=== PATIENT | male | born 1985 | race Caucasian/White ===

== ENCOUNTER 2016-09-05 10:11 | Emergency (ER) | payer OTHER ==
--- NOTE | 2016-09-05 13:22 | ED ORDER SUMMARY ---
..... 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 verbal order read back to Lucina ABURTO) (10:52 Aki R.N.) Cardiac Panel Stat (10:52 09/05/2016 Aki Benjamin.N. verbal order read back to Lucina ABURTO) (10:52 Aki R.N.) Pulse oximeter (10:52 09/05/2016 Aki Benjamin.N. verbal order read back to Lucina ABURTO) (10:52 Aki R.N.) EKG - ER Stat (10:52 09/05/2016 Aki Benjamin.Jovany. verbal order read back to Lucina ABURTO) (10:52 Aki R.N.) MEDICATION ORDERS: IV FLUIDS: IV Saline Lock (10:52 09/05/2016 Aki Bartholomew verbal order read back to Lucina ABURTO) (10:53 Aki R.N.) IV NS : initial bolus 1000 mL (1000 mL/hr), then none - (NOW) (11:25 09/05/2016 Lucina ABURTO) (11:31 Aki R.N.) ORDER SHEET NOTES: [Electronically signed by Luciano Cartagena R.N. (15:44 09/05/2016)] [Electronically signed by Cassie Shoemaker MD (23:54 09/06/2016)] [Electronically locked/signed by Luciano Cartagena R.N. (15:44 09/05/2016)]
--- NOTE | 2016-09-05 13:22 | ED NURSING NOTES ---
Clinical Report - Nurses [facility] [address] [place] [address] 09/05/2016 10:14 [id number] Triage time 10:Sep 05 2016. Acuity: LEVEL 3. Chief Complaint: PALPITATIONS. Alert. ROBERT COMA SCORE: Robert Coma Scale: 15- eyes open spontaneously (4); best verbal response- oriented x 4 (5); best motor response- obeys commands (6). --10:39 Luciano Cartagena R.N. 10:25 09/05/16. BP: 143/108. HR: 84. RR: 16. O2 saturation: 99%. Temp: 98.6 F. Pain level now: 0/10. --10:39 Luciano Cartagena R.N. Weight: 136 kg stated. Height/Length: 75 inches Per Patient. BMI: 37.5. --10:30 Luciano Cartagena R.N. Medications Albuterol Sulfate Inhalation. --10:28 Luciano Cartagena R.N. Flovent Diskus Inhalation. --10:28 Luciano Cartagena R.N. Extenz 2 tabs, as needed (Sexual Performance Stimulator). --10:32 Luciano Cartagena R.N. Multivitamins Oral. Selenium Oral. --10:33 Luciano Cartagena R.N. Medication/allergy information source: the patient. --10:39 Luciano Cartagena R.N. Allergies No Known Drug Allergy. --10:33 Luciano Cartagena R.N. History Arrived by private vehicle. Historian: patient. Accompanied by family. ( Palpitations after drinking coffee and taking 2 Extenz sexual stimulators.). This started today. Onset. (about 1 hour ago). Reports muscle aches involving the right arm. 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 PAST MEDICAL HX: Immunizations: status is unknown. SOCIAL HX: Never smoker. No alcohol use or drug use. No infectious disease exposure. ABUSE ASSESSMENT: No report of abuse. FALL RISK ASSESSMENT: Fall risk assessment completed. No fall risk identified. NUTRITIONAL RISK ASSESSMENT: The nutritional risk assessment revealed no deficiencies. FUNCTIONAL ASSESSMENT: Functional assessment: no impairments noted. LEARNING NEEDS ASSESSMENT: The learning needs assessment revealed no barriers. SKIN INTEGRITY ASSESSMENT: Skin integrity risk assessment completed. No skin integrity risk identified. --10:39 Luciano Cartagena R.N. PROBLEMS: Asthma. Breast CA. --10:30 Luciano Cartagena R.N. ADDITIONAL SURGERIES: Mastectomy. --10:30 Luciano Cartagena R.N. Interventions ID band on patient. To treatment room. --10:39 Luciano Cartagena R.N. PHYSICAL ASSESSMENT Ambulatory to room. GENERAL / NEURO / PSYCH: Alert. Oriented X 4. HEENT: No facial asymmetry noted. Mucous membranes are pink. RESPIRATORY: Respirations not labored. CVS: Normal sinus rhythm noted. GI / : Abdomen soft. SKIN: Skin is warm and dry. --10:40 Luciano Cartagena R.N. NURSING PROGRESS NOTES Patient gowned. Reassurance given. Patient identifiers checked. Call light placed in reach. Side rails up. Bed placed in lowest position. Brakes of bed on. Patient ready for evaluation- chart flagged and ED physician notified. --10:40 Luciano Cartagena R.N. 10:45 09/05/2016 Site #1 started via IV in the right forearm with an 20g angiocath, with aseptic technique and good blood return; one attempt. Blood drawn: rainbow set. Saline lock flushed with 10 mL saline. --10:53 Luciano Cartagena R.N. 11:31 09/05/2016 Started bag #1 1000 mL IV Fluids IV NS (Saline); at 1000 mL/hr over 60 minute(s) via site #1 via IV pump. Allergies verified and confirmed 5 rights. IV patency established. IV site checked: no pain, redness, or swelling. IV flushed thoroughly pre- and post-medication administration. --11:31 Luciano Cartagena R.N. EKG time: (1030). EKG was ordered, performed by a tech and shown to the ED physician. --11:45 Jimmy Tamez ER Tech1 12:48 09/05/2016 IV Fluids IV NS Discontinued: bag #1 infused. Total amount infused: 1000 mL. IV patency established. IV site checked: no pain, redness, or swelling. IV flushed thoroughly. (converted to saline lock). --12:53 Domonique Keith R.N. 12:50 09/05/16. HR: 85. RR: 18. O2 saturation: 100%. Temp: deferred. --12:54 Domonique Keith R.N. 12:50 first contact with pt. IV bag complete, converted to saline lock. Pt states he is feeling much better. resting quietly with SO at bedside. --12:54 Domonique Keith R.N. 13:26 09/05/2016 Site #1 removed upon discharge. Pressure dressing applied. --13:31 Joselyn Birch R.N. DISPOSITION / DISCHARGE 13:20 09/05/16. BP: 137/86. HR: 72. RR: 18. O2 saturation: 96% on room air. Temp: 98.5 F. Pain level now: 0/10. --15:12 Luciano Cartagena R.N. Departure time: 1325. --15:12 Luciano Cartagena R.N. 13:25. No learning barriers present. Discharge instructions provided and reviewed with the patient. Reviewed medication(s) (continue your usual medications). Reviewed referral to family practice for followup. Patient verbalized understanding. Written instructions provided in [place]e. The patient was discharged by the physician. He was discharged home and accompanied by spouse. He left the Emergency Department ambulatory and via private vehicle. Spouse driving. --15:43 Luciano Cartagena R.N. Locked/Released at 09/05/2016 15:44 by Luciano Cartagena R.N.
--- NOTE | 2016-09-05 13:22 | ED CLINICAL REPORT ---
Clinical Report - Physicians/Mid Levels [facility] [address] [place] [address] 09/05/2016 10:14 Patient: CAROLE ERAZO Time Seen: 11:24. Arrived- By private vehicle. Historian- patient. HISTORY OF PRESENT ILLNESS Chief Complaint: PALPITATIONS. Modifying factors. Not worsened by anything. Not relieved by anything. This started today and is now gone. (Patient took 2 "Extenz" tablets, as well as drink coffee, shortly before the symptoms started. Patient states he has taken Extenz before, but it has not resulted in these symptoms.). History of caffeine use prior to onset. It is described as a fast and pounding heart beat. He did not lose consciousness. He did not feel like might "pass out". He complains of dizziness. Not described as weakness. No chest pain or discomfort, sweating episodes, fainting episodes or muscle spasms. He has had difficulty breathing, dizziness and tingling. 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 Similar symptoms previously: None. Recent medical care: Not recently seen/assessed. REVIEW OF SYSTEMS No fever, chills, cough, orthopnea or calf pain. No enlarged lymph nodes, headache, sore throat, blurred vision or nausea. No abdominal pain, black stools, difficulty with urination, skin rash or trouble sleeping. No vomiting, diarrhea or bloody stools. The patient has not had a poor appetite. All systems otherwise negative, except as recorded above. PAST HISTORY Problems: Asthma. Breast CA. Additional Surgeries: Mastectomy. Medications: Multivitamins Oral. Selenium Oral. Extenz 2 tabs, as needed (Sexual Performance Stimulator). Flovent Diskus Inhalation. Albuterol Sulfate Inhalation. Allergies: No Known Drug Allergy. SOCIAL HISTORY Never smoker. No alcohol use or drug use. ADDITIONAL NOTES The nursing notes have been reviewed. PHYSICAL EXAM Vital Signs: 09/05/2016 10:25 BP: 143/108. HR: 84. RR: 16. O2 saturation: 99%. Temp: 98.6 F. Pain level now: 0/10. Have been reviewed. Appearance: Alert. Oriented X3. No acute distress. Eyes: Pupils equal, round and reactive to light. Eyes normal inspection. ENT: Nose normal. Neck: Normal inspection. Neck supple. CVS: Normal heart rate and rhythm. Heart sounds normal. Pulses normal. Respiratory: No respiratory distress. Breath sounds normal. Chest nontender. Abdomen: Soft and nontender. Back: Normal external inspection. No CVA tenderness. Skin: Skin warm and dry. Normal skin color. No rash. Normal skin turgor. Extremities: Extremities exhibit normal ROM. No lower extremity edema. Neuro: Oriented X 3. No motor deficit. No sensory deficit. LABS, X-RAYS, AND EKG EKG: EKG time: (1030). No acute process. No acute ischemia. Normal EKG. Normal sinus rhythm. Rate: 83. Normal P waves. Normal CASSIUS. Normal QRS complex. Normal axis. Normal ST and T waves, QT and QTc. Prior EKG unavailable. The study has been interpreted contemporaneously by me. The study has been independently viewed by me. The EKG appears to be a good tracing. I agree with and confirm the computer reading of the EKG. Rhythm Strip #1: Time: (1028). Rate= 85. Normal sinus rhythm. Regular rhythm. Narrow QRS complexes. No ectopy. Conduction normal. Normal ST segments and T waves. The study was interpreted by me. Laboratory Tests: CBC w Diff: (THEE: 09/05/2016 10:45) ( MsgRcvd 09/05/2016 11:07) Final results Test Result Flag Units (Reference) WHITE BLOOD COUNT 4.3 L K/uL (4.5-11.5) RED BLOOD COUNT 5.25 M/uL (4.50-5.90) HEMOGLOBIN 15.9 gm/dL (13.5-17.5) HEMATOCRIT 46.0 % (41.0-53.0) MEAN CELL VOLUME 88 fL (80-100) MEAN CORPUSCULAR HGB 30 pg (26-34) MEAN CORPUSCULAR HGB CONC 35 g/dL (31-37) RED CELL DISTRIBUTION WIDTH 12.2 % (11.6-14.8) PLATELET COUNT 250 K/uL (150-400) NEUTROPHIL % 55.3 % (50-75) LYMPH % 35.6 % (25-40) MONO % 5.6 % (3-14) EOSINOPHIL % 3.2 % (0-4) BASOPHIL % 0.3 % (0-2) CHEM 13 PANEL: (THEE: 09/05/2016 10:45) ( MsgRcvd 09/05/2016 11:25) Final results Test Result Flag Units (Reference) GLUCOSE 98 mg/dL (70-110) BUN 13 mg/dL (7-18) CREATININE 0.8 mg/dL (0.6-1.3) Estimated GFR >60 mL/min Estimated GFR- >60 mL/min Note: Persistent reduction over 3 months in eGFR<60 mL/min/1.73 m2 defines CKD. Patients with eGFR values>=60 mL/min/1.73 m2 may also have CKD if evidence ofpersistent proteinuria. Additional information may be foundat www.kidney.org. SODIUM 139 mmol/L (136-145) POTASSIUM 3.9 mmol/L (3.5-5.1) CHLORIDE 101 mmol/L (98-107) CARBON DIOXIDE 26 mmol/L (21-32) CALCIUM 8.7 mg/dL (8.5-10.1) TOTAL PROTEIN 7.6 g/dL (6.4-8.2) ALBUMIN 3.9 g/dL (3.3-5.0) BILIRUBIN, TOTAL 0.8 mg/dL (0.0-1.0) ALKALINE PHOSPHATASE 92 U/L (46-116) AST (SGOT) 21 U/L (15-37) ALT (SGPT) 40 U/L (12-78) MAGNESIUM 2.0 mg/dL (1.8-2.4) CPK 101 U/L (24-260) TROPONIN I <0.05 L ng/mL (0.00-1.5) TROPONIN REFERENCE RANGE:<0.1 NEGATIVE0.1-1.5 INDETERMINANT>1.5 POSITIVE . Pulse Oximetry: 09/05/2016 10:25 O2 saturation: 99%. (FIO2 - room air). Interpretation: normal. PROGRESS AND PROCEDURES Course of Care: patient was given a liter of IV fluid, as well as worked up EKG and labs. These are found to be unremarkable. Patient had taken a combination of stimulants, and I felt his symptoms of palpitations were due to this. Patient was feeling much better at the time of my evaluation, and I felt he was stable for discharge home. Patient and spouse counseled in person regarding the patient's stable condition, test results, diagnosis and need for follow-up. Concerns were addressed. Old medical records reviewed. Disposition: Discharged. Condition: stable and improved. CLINICAL IMPRESSION Adverse drug reaction. (stimulant). Palpitations INSTRUCTIONS (Your labs and EKG look good.). Warnings: GENERAL WARNINGS: Return or contact your physician immediately if your condition worsens or changes unexpectedly, if not improving as expected, or if other problems arise. Your Current Medications: CONTINUE TAKING THE FOLLOWING MEDICATIONS: Albuterol Sulfate Inhalation. Extenz* : 2 tabs, prn, Sexual Performance Stimulator. Flovent Diskus Inhalation. Multivitamins Oral. Selenium Oral. Follow-up: Follow up with your doctor if not better. Call for an appointment. Understanding of the discharge instructions verbalized by patient. (Electronically signed by Cassie Shoemaker MD 09/06/2016 23:54)
--- NOTE | 2016-09-05 13:22 | ED NURSING NOTES ---
Clinical Report - Nurses [facility] [address] [place] [address] 09/05/2016 10:14 [id number] Triage time 10:Sep 05 2016. Acuity: LEVEL 3. Chief Complaint: PALPITATIONS. Alert. ROBERT COMA SCORE: Robert Coma Scale: 15- eyes open spontaneously (4); best verbal response- oriented x 4 (5); best motor response- obeys commands (6). --10:39 Luciano Cartagena R.N. 10:25 09/05/16. BP: 143/108. HR: 84. RR: 16. O2 saturation: 99%. Temp: 98.6 F. Pain level now: 0/10. --10:39 Luciano Cartagena R.N. Weight: 136 kg stated. Height/Length: 75 inches Per Patient. BMI: 37.5. --10:30 Luciano Cartagena R.N. Medications Albuterol Sulfate Inhalation. --10:28 Luciano Cartagena R.N. Flovent Diskus Inhalation. --10:28 Luciano Cartagena R.N. Extenz 2 tabs, as needed (Sexual Performance Stimulator). --10:32 Luciano Cartagena R.N. Multivitamins Oral. Selenium Oral. --10:33 Luciano Cartagena R.N. Medication/allergy information source: the patient. --10:39 Luciano Cartagena R.N. Allergies No Known Drug Allergy. --10:33 Luciano Cartagena R.N. History Arrived by private vehicle. Historian: patient. Accompanied by family. ( Palpitations after drinking coffee and taking 2 Extenz sexual stimulators.). This started today. Onset. (about 1 hour ago). Reports muscle aches involving the right arm. 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 PAST MEDICAL HX: Immunizations: status is unknown. SOCIAL HX: Never smoker. No alcohol use or drug use. No infectious disease exposure. ABUSE ASSESSMENT: No report of abuse. FALL RISK ASSESSMENT: Fall risk assessment completed. No fall risk identified. NUTRITIONAL RISK ASSESSMENT: The nutritional risk assessment revealed no deficiencies. FUNCTIONAL ASSESSMENT: Functional assessment: no impairments noted. LEARNING NEEDS ASSESSMENT: The learning needs assessment revealed no barriers. SKIN INTEGRITY ASSESSMENT: Skin integrity risk assessment completed. No skin integrity risk identified. --10:39 Luciano Cartagena R.N. PROBLEMS: Asthma. Breast CA. --10:30 Luciano Cartagena R.N. ADDITIONAL SURGERIES: Mastectomy. --10:30 Luciano Cartagena R.N. Interventions ID band on patient. To treatment room. --10:39 Luciano Cartagena R.N. PHYSICAL ASSESSMENT Ambulatory to room. GENERAL / NEURO / PSYCH: Alert. Oriented X 4. HEENT: No facial asymmetry noted. Mucous membranes are pink. RESPIRATORY: Respirations not labored. CVS: Normal sinus rhythm noted. GI / : Abdomen soft. SKIN: Skin is warm and dry. --10:40 Luciano Cartagena R.N. NURSING PROGRESS NOTES Patient gowned. Reassurance given. Patient identifiers checked. Call light placed in reach. Side rails up. Bed placed in lowest position. Brakes of bed on. Patient ready for evaluation- chart flagged and ED physician notified. --10:40 Luciano Cartagena R.N. 10:45 09/05/2016 Site #1 started via IV in the right forearm with an 20g angiocath, with aseptic technique and good blood return; one attempt. Blood drawn: rainbow set. Saline lock flushed with 10 mL saline. --10:53 Luciano Cartagena R.N. 11:31 09/05/2016 Started bag #1 1000 mL IV Fluids IV NS (Saline); at 1000 mL/hr over 60 minute(s) via site #1 via IV pump. Allergies verified and confirmed 5 rights. IV patency established. IV site checked: no pain, redness, or swelling. IV flushed thoroughly pre- and post-medication administration. --11:31 Luciano Cartagena R.N. EKG time: (1030). EKG was ordered, performed by a tech and shown to the ED physician. --11:45 Jimmy Tamez ER Tech1 12:48 09/05/2016 IV Fluids IV NS Discontinued: bag #1 infused. Total amount infused: 1000 mL. IV patency established. IV site checked: no pain, redness, or swelling. IV flushed thoroughly. (converted to saline lock). --12:53 Domonique Keith R.N. 12:50 09/05/16. HR: 85. RR: 18. O2 saturation: 100%. Temp: deferred. --12:54 Domonique Keith R.N. 12:50 first contact with pt. IV bag complete, converted to saline lock. Pt states he is feeling much better. resting quietly with SO at bedside. --12:54 Domonique Keith R.N. 13:26 09/05/2016 Site #1 removed upon discharge. Pressure dressing applied. --13:31 Joselyn Birch R.N. DISPOSITION / DISCHARGE 13:20 09/05/16. BP: 137/86. HR: 72. RR: 18. O2 saturation: 96% on room air. Temp: 98.5 F. Pain level now: 0/10. --15:12 Luciano Cartagena R.N. Departure time: 1325. --15:12 Luciano Cartagena R.N. 13:25. No learning barriers present. Discharge instructions provided and reviewed with the patient. Reviewed medication(s) (continue your usual medications). Reviewed referral to family practice for followup. Patient verbalized understanding. Written instructions provided in [place]. The patient was discharged by the physician. He was discharged home and accompanied by spouse. He left the Emergency Department ambulatory and via private vehicle. Spouse driving. --15:43 Luciano Cartagena R.N. Locked/Released at 09/05/2016 15:44 by Luciano Cartagena R.N.
--- NOTE | 2016-09-05 13:22 | ED ORDER SUMMARY ---
..... Patient: CAROLE ERAZO OrderSheet 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 verbal order read back to Lucina ABURTO) (10:52 Aki R.N.) Cardiac Panel Stat (10:52 09/05/2016 Aki Benjamin.N. verbal order read back to Lucina ABURTO) (10:52 Aki R.N.) Pulse oximeter (10:52 09/05/2016 Aki Benjamin.N. verbal order read back to Lucina ABURTO) (10:52 Aki R.N.) EKG - ER Stat (10:52 09/05/2016 Aki Benjamin.Jovany. verbal order read back to Lucina ABURTO) (10:52 Aki R.N.) MEDICATION ORDERS: IV FLUIDS: IV Saline Lock (10:52 09/05/2016 Aki Bartholomew verbal order read back to Lucina ABURTO) (10:53 Aki R.N.) IV NS : initial bolus 1000 mL (1000 mL/hr), then none - (NOW) (11:25 09/05/2016 Lucina ABURTO) (11:31 Aki R.N.) ORDER SHEET NOTES: [Electronically signed by Luciano Cartagena R.N. (15:44 09/05/2016)] [Electronically signed by Cassie Shoemaker MD (23:54 09/06/2016)] [Electronically locked/signed by Luciano Cartagena R.N. (15:44 09/05/2016)]
--- NOTE | 2016-09-06 23:55 | ED DISCHARGE INSTRUCTIONS ---
Patient: CAROLE ERAZO General Instructions [facility] VisitID: [id number] [place] [address] 30y, M Registration Date/Time: 09/05/2016 Adverse drug reaction. (stimulant). Palpitations INSTRUCTIONS (Your labs and EKG look good.). Warnings: GENERAL WARNINGS: Return or contact your physician immediately if your condition worsens or changes unexpectedly, if not improving as expected, or if other problems arise. Your Current Medications: CONTINUE TAKING THE FOLLOWING MEDICATIONS: Albuterol Sulfate Inhalation. Extenz* : 2 tabs, prn, Sexual Performance Stimulator. Flovent Diskus Inhalation. Multivitamins Oral. Selenium Oral. Follow-up: Follow up with your doctor if not better. Call for an appointment. Understanding of the discharge instructions verbalized by patient. ADDITIONAL INFORMATION Heart Palpitations Palpitations refers to the feeling that your heart is beating hard, fast or irregular. Some people describe it as "pounding" or "skipped beats". Palpitations may occur in persons with heart disease, but can also occur in healthy persons. Heart-Related Causes: Arrhythmia (a change from the heart's normal rhythm) Disease of the heart valves [id number] Causes: Certain medicines (such as asthma inhalers and decongestants) Some herbal supplements, energy drinks and pills, and weight loss pills Illegal stimulant drugs (such as cocaine, crank, methamphetamine, PCP) Caffeine, alcohol and tobacco Medical conditions such as thyroid disease, anemia, anxiety and panic disorder Sometimes the cause cannot be found. Home Care: Avoid excess caffeine, alcohol, tobacco and any stimulant drugs. Tell your doctor about any prescription or [id number] or herbal medicines you take. Follow Up with your doctor or as advised by our staff. Get Prompt Medical Attention if any of the following occur together with palpitations: Weakness, dizziness, light-headed or fainting Chest pain or shortness of breath Rapid heart rate (over 120 beats per minute, at rest) Palpitations that lasts over 20 minutes Weakness of an arm or leg or one side of the face Difficulty with speech or vision You have been given the following additional information: Palpitations (Electronically signed by Cassie Shoemaker MD 09/06/2016 23:54)
--- NOTE | 2016-09-06 23:55 | ED MED RECONCILIATION SUMMARY ---
Patient: CAROLE ERAZO Medication Reconciliation Report [facility] VisitID: [id number] [address] [place] [address] 30y, M Registration Date/Time: 09/05/2016 Weight: 136.0 kg Height/Length: 75 in. BMI: 37.5 ALLERGIES: No Known Drug Allergy The patient's Home Medications are listed below: CONTINUE TAKING THE FOLLOWING MEDICATIONS: Albuterol Sulfate Inhalation Extenz 2 tabs, Sexual Performance Stimulator Flovent Diskus Inhalation Multivitamins Oral Selenium Oral The source(s) of the original Home Medication information: patient The following Medications were given to the patient in the Emergency Department: IV NS IV Fluids bolus 0, then 1000 mL/hr, administered: 09/05/2016 11:31:00 AM The following Medications were prescribed to the patient: None.
--- NOTE | 2016-09-06 23:55 | ED DISCHARGE INSTRUCTIONS ---
Patient: CAROLE ERAZO General Instructions [facility] VisitID: [id number] [place] [address] 30y, M Registration Date/Time: 09/05/2016 Adverse drug reaction. (stimulant). Palpitations INSTRUCTIONS (Your labs and EKG look good.). Warnings: GENERAL WARNINGS: Return or contact your physician immediately if your condition worsens or changes unexpectedly, if not improving as expected, or if other problems arise. Your Current Medications: CONTINUE TAKING THE FOLLOWING MEDICATIONS: Albuterol Sulfate Inhalation. Extenz* : 2 tabs, prn, Sexual Performance Stimulator. Flovent Diskus Inhalation. Multivitamins Oral. Selenium Oral. Follow-up: Follow up with your doctor if not better. Call for an appointment. Understanding of the discharge instructions verbalized by patient. ADDITIONAL INFORMATION Heart Palpitations Palpitations refers to the feeling that your heart is beating hard, fast or irregular. Some people describe it as "pounding" or "skipped beats". Palpitations may occur in persons with heart disease, but can also occur in healthy persons. Heart-Related Causes: Arrhythmia (a change from the heart's normal rhythm) Disease of the heart valves Tmi-Gmlzm-Jjxtkoo Causes: Certain medicines (such as asthma inhalers and decongestants) Some herbal supplements, energy drinks and pills, and weight loss pills Illegal stimulant drugs (such as cocaine, crank, methamphetamine, PCP) Caffeine, alcohol and tobacco Medical conditions such as thyroid disease, anemia, anxiety and panic disorder Sometimes the cause cannot be found. Home Care: Avoid excess caffeine, alcohol, tobacco and any stimulant drugs. Tell your doctor about any prescription or jtyd-shs-yqgymcs or herbal medicines you take. Follow Up with your doctor or as advised by our staff. Get Prompt Medical Attention if any of the following occur together with palpitations: Weakness, dizziness, light-headed or fainting Chest pain or shortness of breath Rapid heart rate (over 120 beats per minute, at rest) Palpitations that lasts over 20 minutes Weakness of an arm or leg or one side of the face Difficulty with speech or vision You have been given the following additional information: Palpitations (Electronically signed by Cassie Shoemaker MD 09/06/2016 23:54)
--- NOTE | 2016-09-06 23:55 | ED MED RECONCILIATION SUMMARY ---
Patient: CAROLE ERAZO Medication Reconciliation Report [facility] VisitID: [id number] [address] [place] [address] 30y, M Registration Date/Time: 09/05/2016 Weight: 136.0 kg Height/Length: 75 in. BMI: 37.5 ALLERGIES: No Known Drug Allergy The patient's Home Medications are listed below: CONTINUE TAKING THE FOLLOWING MEDICATIONS: Albuterol Sulfate Inhalation Extenz 2 tabs, Sexual Performance Stimulator Flovent Diskus Inhalation Multivitamins Oral Selenium Oral The source(s) of the original Home Medication information: patient The following Medications were given to the patient in the Emergency Department: IV NS IV Fluids bolus 0, then 1000 mL/hr, administered: 09/05/2016 11:31:00 AM The following Medications were prescribed to the patient: None.
--- NOTE | 2016-09-06 23:55 | ED MAR SUMMARY ---
..... Medication Administration Record [facility] [address] [place] [address] Patient: CAROLE ERAZO Visit ID: [id number] 30y, M Weight: 136.0 kg Height/Length: 75 in BMI: 37.5 ALLERGIES: No Known Drug Allergy Start 11:31 09/05/2016 Luciano Cartagena RCedrick, Stop 12:48 09/05/2016 SagarDomonique RRadhamesN. Medication Administered: IV NS (SALINE), Dose: IV Fluids over 60 minute(s), Rate: 1000 mL/hr, Dispensed: 1000 mL bag, Site: #1 right forearm. Medication Ordered: IV NS : initial bolus 1000 mL (1000 mL/hr), then none - (NOW).
--- NOTE | 2016-09-06 23:55 | ED MAR SUMMARY ---
..... Medication Administration Record [facility] [address] [place] [address] Patient: CAROLE ERAZO Visit ID: [id number] 30y, M Weight: 136.0 kg Height/Length: 75 in BMI: 37.5 ALLERGIES: No Known Drug Allergy Start 11:31 09/05/2016 Luciano Cartagena RCedrick, Stop 12:48 09/05/2016 SagarDomonique RRadhamesN. Medication Administered: IV NS (SALINE), Dose: IV Fluids over 60 minute(s), Rate: 1000 mL/hr, Dispensed: 1000 mL bag, Site: #1 right forearm. Medication Ordered: IV NS : initial bolus 1000 mL (1000 mL/hr), then none - (NOW).
== END 2016-09-05 13:25 | disposition home or self-care (01) ==
LOC: ED SRH 10:11
DX: R00.2 Palpitations (principal); T43.695A Adverse effect of other psychostimulants, initial encounter; J45.909 Unspecified asthma, uncomplicated; Z79.51 Long term (current) use of inhaled steroids; Z79.899 Other long term (current) drug therapy
CPT/HCPCS: 90100; 90616; 92610; 92720; 95059